=== PATIENT | male | born 1995 | race Caucasian/White ===

== ENCOUNTER 2023-03-20 00:03 | Emergency (ER) | payer OTHER ==
[2023-03-20 00:34] VITALS: BP 114/74; PULSE 100; RESP 20; TEMP 98.1
[2023-03-20 12:06] LABS: Hepatitis C IgG Antibody Nonreactive
[2023-03-20 14:24] LABS: HIV 2 AB Non-Reactive (Non-Reactive); HIV AB P24 Non-Reactive (Non-Reactive); HIV P24 AG Non-Reactive (Non-Reactive)
[2023-03-24 08:49] LABS: Hepatitis B Surface AB- Quant 3.5 mIU/mL
== END 2023-03-20 01:10 | disposition home or self-care (01) ==
LOC: EC 00:03
DX: Z02.83 Encounter for blood-alcohol and blood-drug test (principal)
CPT/HCPCS: 36415; 86706; 86803; 87390; 99499

== ENCOUNTER 2024-06-27 22:12 | Emergency (ER) | payer OTHER ==
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
[2024-06-27 23:09] VITALS: BP 112/77; PULSE 97; RESP 20; TEMP 98.2
== END 2024-06-27 23:08 | disposition home or self-care (01) ==
LOC: EC 22:12
DX: T74.21XA Adult sexual abuse, confirmed, initial encounter (principal); R23.3 Spontaneous ecchymoses
CPT/HCPCS: 99284